=== PATIENT | female | born 1955 | race Caucasian/White ===

== ENCOUNTER 2018-10-27 16:04 | Emergency (ER) | payer BC ==
[2018-10-27 16:17] VITALS: RESP 18; TEMP 99.3
[2018-10-27] MEDS ORDERED: HYDROcodone/APAP 5-325MG 1 EACH TAB PO STA (16:25)
[2018-10-27] MEDS ORDERED: DIPH,PERTUS(ACELL)TETVAC-LF 0.5 ML VIAL IM ONE (16:27)
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
[2018-10-27] MEDS ORDERED: IBUPROFEN 400 MG TAB PO STA (16:46)
--- NOTE | 2018-10-27 17:12 | XR ---
EXAMINATION TYPE: XR knee complete bilateral DATE OF EXAM: 10/27/2018 CLINICAL HISTORY: Bilateral knee pain TECHNIQUE: Three views of the bilateral knees are obtained. COMPARISON: None. FINDINGS: Bilateral knees demonstrate no acute fracture or dislocation. No soft tissue swelling or radiopaque f oreign bodies. Bilateral fabellae are incidentally noted. IMPRESSION: No bilateral knee dislocation or fracture.
--- NOTE | 2018-10-27 17:16 | XR ---
EXAMINATION TYPE: XR elbow limited RT DATE OF EXAM: 10/27/2018 CLINICAL HISTORY: Elbow pain, fall TECHNIQUE: Frontal, lateral and oblique images of the right elbow are obtained. COMPARISON: None FINDINGS: Transversely oriented comminuted fracture is identified of the olecranon with approximately 3.5 cm of superior displacement. There is additional comminution of this is superiorly displaced fracture frag ment. An additional small obliquely oriented fracture is seen of the coronoid process. The radial hea d appears intact. There is diffuse soft tissue swelling. IMPRESSION: 1. Comminuted and displaced olecranon fracture. 2. Small coronoid process fracture.
[2018-10-27 18:45] VITALS: BP 109/73; PULSE 85
== END 2018-10-27 18:45 | disposition home or self-care (01) ==
LOC: EC 16:04
DX: S52.021A Displaced fracture of olecranon process without intraarticular extension of right ulna, initial encounter for closed fracture (principal); S52.041A Displaced fracture of coronoid process of right ulna, initial encounter for closed fracture; I10 Essential (primary) hypertension; Z23 Encounter for immunization; Z79.899 Other long term (current) drug therapy; Z88.2 Allergy status to sulfonamides; Z53.8 Procedure and treatment not carried out for other reasons; W19.XXXA Unspecified fall, initial encounter; W22.8XXA Striking against or struck by other objects, initial encounter; Y92.009 Unspecified place in unspecified non-institutional (private) residence as the place of occurrence of the external cause
CPT/HCPCS: 29105; 90471; 90715; 99283

== ENCOUNTER → 2018-10-28 | Outpatient (CLI) | payer BC ==
[2018-10-28 15:05] LABS: Potassium 3.8 mmol/L (3.5-5.1)
[2018-10-28 15:59] LABS: Basophils % (A) 1 %; Eosinophils % (A) 0 %; HCT 39.4 % (34.0-46.0); HGB 12.3 gm/dL (11.4-16.0); Lymphocytes # (A) 1.2 k/uL (1.0-4.8); Lymphocytes % (A) 18 %; MCH 29.6 pg (25.0-35.0); MCHC 31.1 g/dL (31.0-37.0); MCV 95.1 fL (80.0-100.0); Mean Platelet Volume 8.1; Monocytes # (A) 0.4 k/uL (0-1.0); Monocytes % (A) 6 %; Neutrophils # (A) 4.9 k/uL (1.3-7.7); Neutrophils % (A) 74 %; Platelet Count 229 k/uL (150-450); RBC 4.14 m/uL (3.80-5.40); WBC 6.6 k/uL (3.8-10.6)
== END ==
LOC: LABPAT 14:16
PROVIDERS: ATTEND Orthopaedic Surgery
DX: Z01.818 Encounter for other preprocedural examination (principal); Z01.812 Encounter for preprocedural laboratory examination; S52.021D Displaced fracture of olecranon process without intraarticular extension of right ulna, subsequent encounter for closed fracture with routine healing
CPT/HCPCS: 36415; 80051; 85025; 93005

== ENCOUNTER 2018-10-30 11:52 | Observation (INO) | payer BC ==
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
[2018-10-29 09:18] VITALS: BMI 23.2
[~2018-10-30 11:52] MED LIST: LIDOCAINE 1% 20 ML VIAL (10MG/ML) FOR IV START INTRADERMA PRN; MIDAZOLAM 2 MG/2 ML VIAL IV PRN; fentaNYL (PF) 50 MCG/ML 2 ML AMP IV PRN
[2018-10-30] MEDS ORDERED: LACTATED RINGERS 1,000 ML IV ONE (12:21)
[2018-10-30] MEDS ORDERED: LIDOCAINE 1% 20 ML VIAL (10MG/ML) FOR IV START INTRADERMA ONE (12:41)
[2018-10-30] MEDS: ONDANSETRON 4 MG/2 ML VIAL IVP ONE ×2 (12:49→17:20)
[2018-10-30] MEDS ORDERED: DEXAMETHASONE SOD PHOS (MDV) 100 MG/10 ML VIAL IVP ONE (12:50)
[2018-10-30] MEDS ORDERED: PROPOFOL 10 MG/ML 20 ML VIAL IV ONE (14:38)
[2018-10-30] MEDS ORDERED: MIDAZOLAM 2 MG/2 ML VIAL ONE (14:38)
[2018-10-30] MEDS ORDERED: LIDOCAINE 1% INJ 10MG/ML (20 ML MDV) ONE (14:38)
[2018-10-30] MEDS ORDERED: fentaNYL (PF) 50 MCG/ML 2 ML AMP ONE (14:38)
[2018-10-30] MEDS ORDERED: SUCCINYLCHOLINE CHLORIDE 100 MG/5 ML SYR IV ONE (14:38)
[2018-10-30] MEDS ORDERED: ceFAZolin 1,000 MG in SODIUM CHLORIDE 0.9% 1,000 ML IRRIGATION ONE (15:46)
--- NOTE | 2018-10-30 16:15 | P.OP ---
Date of Procedure: 10/30/18 Preoperative Diagnosis: Displaced right closed olecranon fracture Postoperative Diagnosis: Same Procedure(s) Performed: Open reduction and internal fixation right olecranon fracture Implants: 0.062 inch K wire 2, 18-gauge wire. Anesthesia: JACQUELINA Surgeon: Andres Zamarripa Estimated Blood Loss (ml): 10 Pathology: none sent Condition: stable Disposition: PACU Indications for Procedure: The patient's a 63-year-old [id number] female who presents after falling injuring her right elbow recently. Upon evaluation she was noted have a closed displaced right olecranon fracture. A discussion of the risks and benefits of operative intervention was made with patient. She opted to proceed with surgery. Operative risks to include infection, neurovascular injury, development of blood clots, possible development of nonunion/malunion, and possible need for subsequent procedures was discussed. Informed consent was obtained. Operative Findings: As below Description of Procedure: The patient was brought to the operating room, and after induction of general anesthesia the right upper extremity was prepped and draped in normal fashion. The tourniquet was inflated to 250 mmHg. An 8 cm incision was then made over the posterior aspect of the right elbow. Skin was incised sharply. Subcu changed tissues were divided bluntly. The fracture site was identified and cleaned of clot and debris. The olecranon fragment was easily mobilized. The articular surface was inspected. The periosteum was elevated on the proximal ulna. The fracture was provisionally reduced with a dental pick. 2 K wires measuring 0.062 inch diameter were then inserted with the aid of fluoroscopy. 2 drill holes were made in the proximal ulna and an 18-gauge wire was passed in a [id number] fashion. This was passed underneath the triceps with a trocar. This was then appropriately tensioned. The K wires were then bent and impacted. Final fluoroscopic views to include AP and lateral views showed adequate reduction of the olecranon with adequate placement of the tension band. The wound was irrigated with normal saline. The subcutaneous tissues were reapproximated interrupted 2-0 Vicryl sutures and the skin was reprepped with 3- 0 subcuticular Prolene suture. Steri-Strips were applied. A sterile dressing was applied. A posterior splint with the elbow at 90 of flexion was placed. The tourniquet was deflated less than 1 hour total tourniquet time. Blood loss was estimated at 10 mL. No complications were incurred. Sponge and needle counts were correct in the case.
[2018-10-30] MEDS ORDERED: Acetaminophen-Codeine 300-30mg TAB PO PRN ×2 (16:16)
[2018-10-30] MEDS ORDERED: ONDANSETRON 4 MG/2 ML VIAL IVP PRN ×2 (16:16→21:37)
[2018-10-30] MEDS: HYDROmorphone 0.5 MG/0.5 ML SYRINGE IVP PRN ×3 (17:20→17:54)
[2018-10-30] MEDS ORDERED: diphenhydrAMINE 50 MG/ML 1 ML VIAL IVP ONE (17:42)
[2018-10-30] MEDS: LACTATED RINGERS 1,000 ML IV SCH (18:00)
[2018-10-31] MEDS: LACTATED RINGERS 1,000 ML IV SCH (04:44)
[2018-10-31 09:02] VITALS: BP 115/76; PULSE 85; RESP 15; TEMP 98.6
[2018-10-31] MEDS: ceFAZolin IN SWFI 2 GM/20 ML SYRINGE IVP SCH ×2 (09:49)
--- NOTE | 2018-10-31 10:04 | FL ---
Fluoroscopy HISTORY: Olecranon fracture 8 seconds fluoroscopy time supplied to the referring clinician. 2 intraoperative C-arm images docume nt the procedure. See dictated report from orthopedic surgery.
[2018-10-31] MEDS ORDERED: ACETAMINOPHEN TAB 325 MG TAB PO PRN (10:07)
--- NOTE | 2018-10-31 10:11 | XR ---
Right elbow HISTORY: Fracture 2 intraoperative C-arm images document the procedure
--- NOTE | 2018-10-31 11:26 | P.PN ---
Subjective Progress Note Date: 10/31/18 Principal diagnosis: Status post ORIF right olecranon fracture Patient evaluated bedside, she has family present. She is resting comfortably. Her pain is well-controlled. She does admit to some nausea, this has improved with medication. She denies any chest pain or shortness of breath. Objective - Vital Signs Vital signs: Vital Signs Temp 98.6 F 10/31/18 07:42 Pulse 85 10/31/18 07:42 Resp 15 10/31/18 07:42 BP 115/76 10/31/18 07:42 Pulse Ox 99 10/31/18 07:42 Intake & Output 10/30/18 10/31/18 10/31/18 18:59 06:59 18:59 Intake Total 1351.5 220 240 Output Total 10 Balance 1341.5 220 240 Intake: IV 1351.5 Intake, IV Titration 220 Amount Lactated Ringers 1,000 ml 220 @ 20 mls/hr IV .Q24H [facility] Rx#:[id number] Oral 240 Output: Estimated Blood Loss 10 Other: Voiding Method Toilet # Voids 2 - Exam Right upper extremity: Postoperative splint is in good condition in position with Bebeto wrap. Sensation to light touch. Proximal distal splinter intact. He is able to wiggle her fingers with no difficulty. Cap refills less than 2 seconds. Assessment and Plan Plan: Assessment: Postop day 1 status post ORIF right elbow olecranon fracture Plan: Pain control, plan for discharge home on Tylenol and Motrin as needed Cast instructions were discussed Utilizing arm sling as needed Ice and elevate often Discharge home today Time with Patient: Less than 30
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
== END 2018-10-31 13:45 | disposition home or self-care (01) ==
LOC: OR 11:52 → 4SSUR 16:08 → OR 22:59 → 4SSUR 23:00
PROVIDERS: ADMIT Orthopaedic Surgery; ATTEND Orthopaedic Surgery
DX: S52.021A Displaced fracture of olecranon process without intraarticular extension of right ulna, initial encounter for closed fracture (principal); I10 Essential (primary) hypertension; R11.0 Nausea; W01.0XXA Fall on same level from slipping, tripping and stumbling without subsequent striking against object, initial encounter; Y92.008 Other place in unspecified non-institutional (private) residence as the place of occurrence of the external cause; Z98.890 Other specified postprocedural states; Z88.2 Allergy status to sulfonamides; Z79.899 Other long term (current) drug therapy
CPT/HCPCS: 24685; 73070; G0378 ×2; C1713; J2250; J1200; J2405; J0690 ×2; J2001; J3010; J1100; J0330; J2704; J1170

== ENCOUNTER → 2022-01-06 | Outpatient (CLI) | payer BC, MEDICARE ==
[2022-01-06 11:28] LABS: ALT 17 U/L (8-44); AST 24 U/L (13-35); Albumin 4.7 g/dL (3.8-4.9); Albumin/Globulin Ratio 1.47 (1.60-3.17); Alkaline Phosphatase 99 U/L (41-126); Bilirubin, Conjugated <0.20 mg/dL (0.20-0.40); Chol/HDL Ratio 3.54 Ratio; Globulin 3.2 g/dL (1.6-3.3); LDL Cholesterol,Calculated 190.7 mg/dL (0.0-131.0); Rheumatoid Factor, Qnt <10 IU/mL (0-15); Total Protein 7.9 g/dL (6.2-8.2); VLDL Calculation 11.56 mg/dL (5.00-40.00)
[2022-01-06 11:29] LABS: African American GFR (CKD) 103.2 (60.0-200.0); Blood Urea Nitrogen 16.4 mg/dL (9.0-27.0); Carbon Dioxide 25.5 mmol/L (20.0-27.5); Chloride 102 mmol/L (96-109); Glucose 91 mg/dL (70-110); Potassium 4.2 mmol/L (3.5-5.5); Sodium 140 mmol/L (135-145)
[2022-01-06 14:54] LABS: Cyclic Citrull Pep IgG Unit <0.5 U/mL; Cyclic Citrullinated Pep IgG NEGATIVE (NEGATIVE)
== END | disposition home or self-care (01) ==
LOC: LABWHC1 07:08
PROVIDERS: ATTEND Internal Medicine
DX: I10 Essential (primary) hypertension (principal); E78.5 Hyperlipidemia, unspecified; M19.049 Primary osteoarthritis, unspecified hand
CPT/HCPCS: 36415; 80051; 80061; 80076; 82565; 82947; 84520; 85652; 86200; 86431

== ENCOUNTER → 2023-09-11 | Outpatient (CLI) | payer MEDICARE, BC ==
--- NOTE | 2023-09-11 14:58 | MM ---
Reason for Exam: Screening (asymptomatic). Last mammogram was performed 21 year(s) and 10 month(s) ago. Patient History: Menarche at age 10. Patient has no children. Postmenopausal. Risk Values: Maria Esther 5 year model risk: 1.9%. NCI Lifetime model risk: 5.6%. Prior Study Comparison: 11/09/1999 Bilateral Screening Mammogram, [facility]. 11/22/2001 Bilateral Screening Mammogram, [facility]. Tissue Density: The breasts are heterogeneously dense, which may obscure small masses. Findings: Analyzed By CAD. Right breast: There is no suspicious group of microcalcifications or new suspicious mass. Left breast: There is no suspicious group of microcalcifications or new suspicious mass. Overall Assessment: Negative, BI-RAD 1 Management: Screening Mammogram of both breasts in [address] [facility] will attempt to contact patient to return for supplemental views and ultrasound if indicated. Patient should continue monthly self-breast exams. A clinical breast exam by your physician is recommended on an annual basis. This exam should not preclude additional follow-up of suspicious palpable abnormalities. Note on Maria Esther scores and lifetime risk: 1. A Maria Esther score greater than 3% is considered moderate risk. If this is the case, consider specialist referral to assess eligibility for a risk reducing agent. 2. If overall lifetime risk for the development of breast cancer is 20% or higher, the patient may qualify for future screening with alternating mammogram and breast MRI. Electronically signed and approved by: Itz Daily DO
== END | disposition home or self-care (01) ==
LOC: RADMAMWWP 07:03
PROVIDERS: ATTEND Internal Medicine
DX: Z12.31 Encounter for screening mammogram for malignant neoplasm of breast (principal); Z78.0 Asymptomatic menopausal state
CPT/HCPCS: 77067

== ENCOUNTER → 2024-04-01 | Outpatient (CLI) | payer MEDICARE, BC ==
--- NOTE | 2024-04-01 17:42 | US ---
EXAMINATION TYPE: US arterial LE single level DATE OF EXAM: 04/01/2024 1:24 PM CLINICAL INDICATION: Female, 68 years old with history of skin color changes. Pt has blotches of red throughout limbs; History of: Smoker: No Hypertension: Yes Diabetic: No Hyperlipidemia: No TIA/CVA: No Previous Vascular Surgery: No CAD: No LA: No Vascular Ulcers: No Claudication: No Gangrene: No Multiphasic waveforms within the visualized bilateral posterior tibial and dorsalis pedis arteries. Right Brachial Pressure: 153 Left Brachial Pressure: 153 Ankle-Brachial Indices: Right: 0.99 Left: 1.03 (Vessel hardening > 1.4; Normal 0.9 - 1.4, Moderate 0.7 - 0.9, Severe 0.5-0.7) IMPRESSION: Normal ankle-brachial indices bilaterally. [facility], , 04/01/2024 5:39 PM
== END | disposition home or self-care (01) ==
LOC: RADUSWWP 12:37
PROVIDERS: ATTEND Internal Medicine
DX: I87.2 Venous insufficiency (chronic) (peripheral) (principal)
CPT/HCPCS: 93922